=== PATIENT | female | born 2000 | race Caucasian/White ===

== ENCOUNTER 2023-10-11 14:39 | Inpatient (IN) | payer MEDICAID ==
[~2023-10-11] VITALS: Ht 162.6 cm; Wt 45.5 kg
[2023-10-11 18:11] LABS: GLUCOMETER DEV NAME(LOC) POC.BV; POC SARS-COV2 AG, FIA NEGATIVE (NEGATIVE)
[2023-10-11 18:15] VITALS: BP 135/80; PULSE 70; RESP 18; TEMP 99.3; O2SAT 99
[2023-10-12] MEDS ORDERED: ZOLPIDEM TARTRATE 10 MG TABLET PO PRN (05:45)
[2023-10-12] MEDS ORDERED: INFLUENZA VIRUS VACCINE QVS 2023-24 (6MO+)/PF 60 MCG/0.5 ML SYRINGE IM. ONE (06:15)
[2023-10-12 06:47] VITALS: BP 128/84; PULSE 94; RESP 18; TEMP 97.3
[2023-10-12] MEDS: LevETIRAcetam 500 MG TABLET PO SCH (09:00)
[2023-10-12] MEDS ORDERED: LevETIRAcetam 250 MG TABLET PO SCH (09:00)
[2023-10-12 15:02] VITALS: BP 112/72; PULSE 74; RESP 18; TEMP 98.2
[2023-10-12 20:05] VITALS: BP 129/86; PULSE 72; RESP 19; TEMP 97.3
[2023-10-13 08:20] VITALS: BP 116/82; PULSE 96; RESP 16; TEMP 97.6; O2SAT 98
[2023-10-13 08:34] LABS: HEMOGLOBIN A1C 4.7 % (3.8-5.6)
[2023-10-13] MEDS: THIAMINE 100 MG TABLET PO SCH (08:42)
[2023-10-13] MEDS: FOLIC ACID 1 MG TABLET PO SCH (08:42)
[2023-10-13] MEDS: MULTIVITAMINS WITH MINERALS, THERAPEUTIC TABLET PO SCH (08:42)
[2023-10-13 08:48] LABS: CHOL/HDL RATIO 2.2 (3.9-5.7); CHOLESTEROL 150 mg/dL (131-200); HCG,QUANTITATIVE < 1 mIU/mL (0-6); HDL CHOLESTEROL 69 mg/dL (40-60); LDL CHOL (CALC.) 72 mg/dL (0-130); TRIGLYCERIDES 46 mg/dL (15-150)
[2023-10-13] MEDS ORDERED: PETROLATUM,WHITE 28 GM JELLY TP PRN (12:45)
[2023-10-13] MEDS ORDERED: ONDANSETRON HCL 4 MG TABLET PO PRN (12:45)
[2023-10-13] MEDS ORDERED: LOPERAMIDE HCL 2 MG CAPSULE PO PRN (12:45)
[2023-10-13] MEDS ORDERED: MAGNESIUM HYDROXIDE SUSPENSION 30 ML UDCUP PO PRN (12:45)
[2023-10-13] MEDS ORDERED: CloNIDine HCL 0.1 MG TABLET PO PRN (12:45)
[2023-10-13] MEDS ORDERED: ALBUTEROL SULFATE HFA 90 MCG/PUFF 8 GM INHALER IH PRN (12:45)
[2023-10-13] MEDS ORDERED: DOCUSATE SODIUM 100 MG CAPSULE PO PRN (12:45)
[2023-10-13] MEDS ORDERED: GuaiFENesin/D-METHORPHAN [SUGAR-FREE] 200-20MG/10 ML SYRUP UDCUP PO PRN (12:45)
[2023-10-13] MEDS ORDERED: IBUPROFEN 400 MG TABLET PO PRN (12:45)
[2023-10-13] MEDS ORDERED: NICOTINE 14 MG/24 HOUR PATCH TD PRN (12:45)
[2023-10-13] MEDS ORDERED: ACETAMINOPHEN 325 MG TABLET PO PRN (12:45)
[2023-10-13] MEDS ORDERED: MAG HYDROX/ALUMINUM HYD/SIMETH ES 30 ML SUSPENSION UDCUP PO PRN (12:45)
[2023-10-13 21:56] VITALS: BP 124/64; PULSE 68; RESP 18; TEMP 98.7
[2023-10-14 08:11] LABS: HEMOGLOBIN A1C 4.8 % (3.8-5.6)
[2023-10-14 08:15] VITALS: BP 132/80; PULSE 60; RESP 18; TEMP 97.9; O2SAT 97
[2023-10-14 08:32] LABS: CHOL/HDL RATIO 2.2 (3.9-5.7); THYROID STIMULATING HORMONE 0.8 uIU/mL (0.36-3.74)
[2023-10-14] MEDS: RisperiDONE 1 MG TABLET PO SCH (09:30)
[2023-10-14 21:21] VITALS: BP 122/77; PULSE 104; RESP 16; TEMP 97.4; O2SAT 98
[2023-10-15 12:19] VITALS: BP 125/75; PULSE 62; RESP 16; TEMP 97; O2SAT 99
[2023-10-15 20:43] VITALS: BP 127/77; PULSE 80; RESP 18; TEMP 97.3
[2023-10-16 03:06] LABS: HEPATITIS C AB (EIA) Non Reactive (Non Reactive)
[2023-10-16 09:18] VITALS: BP 119/71; PULSE 81; RESP 17; TEMP 97.6; O2SAT 98
[2023-10-16] MEDS: HALOPERIDOL 5 MG TABLET PO PRN (13:03)
[2023-10-16] MEDS: LORazepam 2 MG TABLET PO PRN (13:03)
[2023-10-16 20:49] VITALS: BP 97/44; PULSE 69; RESP 18; TEMP 96.8; O2SAT 97
[2023-10-17 08:31] VITALS: BP 125/66; PULSE 95; RESP 16; TEMP 97.6; O2SAT 98
[2023-10-17] MEDS: DiphenhydrAMINE HCL 50 MG/ML VIAL IM ONE (12:35)
[2023-10-17 22:07] VITALS: BP 97/47; RESP 18; TEMP 98.8; O2SAT 76
[2023-10-18 08:52] VITALS: BP 109/59; PULSE 85; RESP 20; TEMP 97.6
[2023-10-18] MEDS ORDERED: DiphenhydrAMINE HCL 50 MG/ML VIAL ONE (12:18)
[2023-10-18] MEDS: DiphenhydrAMINE HCL 50 MG/ML VIAL IM ONE (12:37)
[2023-10-18 20:40] VITALS: BP 123/92; PULSE 110; RESP 19; TEMP 98.6; O2SAT 98
[2023-10-19 07:50] LABS: APPEARANCE,URINE HAZY (CLEAR); BILIRUBIN,URINE NEGATIVE (NEGATIVE); COLOR,URINE LIGHT YELLOW (YELLOW); GLUCOSE, URINE (UA) NEGATIVE (NEGATIVE); KETONES,URINE NEGATIVE (NEGATIVE); LEUKOCYTE ESTERASE ,URINE NEGATIVE (NEGATIVE); NITRATE,URINE NEGATIVE (NEGATIVE); OCCULT BLOOD,URINE NEGATIVE (NEGATIVE); PH,URINE 6.5 (5.0-8.0); PH,URINE DRUG SCREEN 6.5 (5.0-8.0); PROTEIN,URINE NEGATIVE (NEGATIVE); SPECIFIC GRAVITIY, URINE 1.014 (1.003-1.030); UROBILINOGEN,URINE <=1.0 mg/dL (<=1.0)
[2023-10-19 07:56] LABS: ALCOHOL, URINE DRUG SCREEN NEGATIVE (NEGATIVE); AMPHET/METH SCREEN,URINE NEGATIVE (NEGATIVE); BARBITURATE SCREEN, URINE NEGATIVE (NEGATIVE); BENZODIAZEPINES SCREEN,URINE NEGATIVE (NEGATIVE); CANNABINOID SCREEN,URINE NEGATIVE (NEGATIVE); COCAINE SCREEN,URINE NEGATIVE (NEGATIVE); METHADONE SCREEN, URINE NEGATIVE (NEGATIVE); OPIATE SCREEN,URINE NEGATIVE (NEGATIVE); PHENCYCLIDINE SCREEN,URINE NEGATIVE (NEGATIVE)
[2023-10-19 08:39] VITALS: BP 120/75; PULSE 65; RESP 16; TEMP 98; O2SAT 96
[2023-10-19] MEDS: DiphenhydrAMINE HCL 25 MG CAPSULE PO PRN (12:43)
[2023-10-19 20:00] VITALS: BP 127/87; PULSE 100; RESP 18; TEMP 97.6; O2SAT 99
[2023-10-20 08:32] VITALS: BP 119/84; PULSE 83; RESP 16; TEMP 97.9; O2SAT 98
[2023-10-20] MEDS ORDERED: RISP1TAB48 PO (13:14)
[2023-10-20] MEDS ORDERED: LEVE500T8 PO (13:14)
== END 2023-10-20 16:29 | disposition home or self-care (01) | DRG 750 ==
LOC: B3A 10-12 05:41
PROVIDERS: ADMIT Psychiatry & Neurology Psychiatry; ATTEND Psychiatry & Neurology Psychiatry
PROC: GZHZZZZ Group Psychotherapy (ICD-10-PCS; principal; 2023-10-17)
DX: F25.0 Schizoaffective disorder, bipolar type (principal); G40.909 Epilepsy, unspecified, not intractable, without status epilepticus; F41.9 Anxiety disorder, unspecified; Z20.822 Contact with and (suspected) exposure to COVID-19; G47.00 Insomnia, unspecified; Z59.00 Homelessness unspecified
CPT/HCPCS: 80061; 80307; 81003; 83036; 84443; 84702; 86803; 87340; J1200

== ENCOUNTER 2023-10-11 21:12 | Emergency (ER) | payer MEDICAID ==
[~2023-10-11] VITALS: Ht 162.6 cm; Wt 46.8 kg
[2023-10-11 21:49] LABS: BASOPHILS % (AUTO) 0.6 % (0.0-2.0); HEMATOCRIT 40.7 % (36-46); HEMOGLOBIN 13.7 g/dL (12.0-16.0); LYMPHOCYTES # (AUTO) 3.3 K/uL (1.0-4.8); LYMPHOCYTES % (AUTO) 35.5 % (22.0-44.0); MEAN CORPUSCULAR HEMOGLOBIN 30.4 pg (26.0-34.0); MEAN CORPUSCULAR HGB CONC 33.7 G/dL (31.0-37.0); MEAN CORPUSCULAR VOLUME 90 fL (80-100); MONOCYTES # (AUTO) 0.9 K/uL (0.1-1.0); MONOCYTES % (AUTO) 9.7 % (2.0-9.0); NEUTROPHILS # (AUTO) 4.8 K/uL (1.8-7.7); NEUTROPHILS % (AUTO) 52.2 % (40.0-70.0); PLATELET COUNT (AUTO) 237 K/uL (150-450); RED BLOOD CELL COUNT(AUTO) 4.52 MIL/uL (4.00-5.20); RED CELL DISTRIBUTION WIDTH 13.5 % (11.5-14.5); WHITE BLOOD COUNT (AUTO) 9.2 K/uL (4.5-11.0)
[2023-10-11 22:05] LABS: ANION GAP 9 mmol/L (8-16); CALCIUM, TOTAL 9.4 mg/dL (8.8-10.5); CARBON DIOXIDE 30 mmol/L (22-29); CHLORIDE 103 mmol/L (98-107); CREATININE 0.85 mg/dL (0.60-1.30); GLOMERULAR FILTR. RATE CALC > 60 mL/min (>60); GLUCOSE,RANDOM 85 mg/dL (70-110); POTASSIUM 3.8 mmol/L (3.5-5.1); SODIUM SERUM 142 mmol/L (136-145); UREA NITROGEN, BLOOD 18 mg/dL (7-18)
[2023-10-11 22:18] LABS: ALANINE AMINOTRANSFERASE 16 U/L (12-78); ALBUMIN 4.1 g/dL (3.4-5.0); ALKALINE PHOSPHATASE 77 U/L (46-116); ASPARTATE AMINOTRANSFERASE 14 U/L (15-37); BILIRUBIN,TOTAL 0.4 mg/dL (0.1-1.0); HCG,QUANTITATIVE < 1 mIU/mL (0-6); LIPASE 51 U/L (16-77); TOTAL PROTEIN, SERUM 6.9 g/dL (6.4-8.2)
[2023-10-11 23:51] VITALS: BP 140/85; PULSE 72; RESP 16; TEMP 98.5
[2023-10-12 03:58] LABS: COVID AG,FIA SOURCE NASAL SWAB
[2023-10-12 04:04] LABS: SARS-COV2 (COVID) ANTIGEN,FIA Negative (Negative)
== END 2023-10-12 05:00 ==
LOC: EMS 21:16
DX: F32.9 Major depressive disorder, single episode, unspecified (principal); G40.909 Epilepsy, unspecified, not intractable, without status epilepticus; F41.9 Anxiety disorder, unspecified; Z20.822 Contact with and (suspected) exposure to COVID-19
CPT/HCPCS: 80053; 83690; 84702; 85025; 99285